=== PATIENT | female | born 1975 | race Caucasian/White ===

== ENCOUNTER → 2016-12-10 | Outpatient (CLI) | payer MEDICAID ==
[~2016-12-10] MED LIST: DICL75 PO; LIDO5DIS35 TD
== END ==
LOC: HPND 10:35
PROVIDERS: ATTEND Obstetrics & Gynecology
DX: O09.521 Supervision of elderly multigravida, first trimester (principal); O09.211 Supervision of pregnancy with history of pre-term labor, first trimester; Z3A.13 13 weeks gestation of pregnancy
CPT/HCPCS: 36416; 76813

== ENCOUNTER → 2017-01-14 | Outpatient (CLI) | payer MEDICAID | LOC: HPND 12:52 | PROVIDERS: ATTEND Obstetrics & Gynecology | DX: O09.522 Supervision of elderly multigravida, second trimester (principal); O26.872 Cervical shortening, second trimester; O09.292 Supervision of pregnancy with other poor reproductive or obstetric history, second trimester; O99.322 Drug use complicating pregnancy, second trimester | CPT/HCPCS: 76811; 76817 ==

== ENCOUNTER → 2017-01-28 | Outpatient (CLI) | payer MEDICAID | LOC: HPND 12:52 | PROVIDERS: ATTEND Obstetrics & Gynecology | DX: O09.522 Supervision of elderly multigravida, second trimester (principal); O09.292 Supervision of pregnancy with other poor reproductive or obstetric history, second trimester; O26.872 Cervical shortening, second trimester; O99.322 Drug use complicating pregnancy, second trimester; Z3A.20 20 weeks gestation of pregnancy | CPT/HCPCS: 76815; 76817 ==

== ENCOUNTER → 2017-02-12 | Outpatient (CLI) | payer MEDICAID | LOC: HPND 13:12 | PROVIDERS: ATTEND Obstetrics & Gynecology | DX: O09.522 Supervision of elderly multigravida, second trimester (principal); O99.322 Drug use complicating pregnancy, second trimester; O28.0 Abnormal hematological finding on antenatal screening of mother; O35.8XX0 Maternal care for other (suspected) fetal abnormality and damage, not applicable or unspecified; Z3A.22 22 weeks gestation of pregnancy | CPT/HCPCS: 76816; 76817; 76825; 76827; 93325 ==

== ENCOUNTER → 2017-03-18 | Outpatient (CLI) | payer MEDICAID | LOC: HPND 12:57 | PROVIDERS: ATTEND Obstetrics & Gynecology | DX: O09.523 Supervision of elderly multigravida, third trimester (principal); Z3A.27 27 weeks gestation of pregnancy | CPT/HCPCS: 76816 ==